=== PATIENT | female | born 1950 | race Caucasian/White ===

== ENCOUNTER 2019-01-15 16:21 | Emergency (ER) | payer BC ==
[2019-01-15 16:31] VITALS: TEMP 98; BMI 33.1
--- NOTE | 2019-01-15 16:31 | PDOC ---
Rapid Medical Evaluation Time Seen by Provider: 01/15/19 16:29 Medical Evaluation: Allergies Allergy/AdvReac Type Severity Reaction Status Date / Time No Known Allergies Allergy Verified 05/18/14 15:22 01/15/19 16:29 I have performed a brief in-person evaluation of this patient. The patient presents with a chief complaint of: RLQ pain w/ constipation x several days. Last BM was yesterday, was small and hard per pt. No BRBPR. Last colonoscopy was last year and neg. Sxs started while vacationing in [facility]. H/o HTN Pertinent physical exam findings:stable and well mg w/ +RLQ ttp I have ordered the following:labs The patient will proceed to the ED for further evaluation. 01/15/19 16:31 Discharge Disposition - Diagnosis Abdominal pain Qualifiers: Abdominal location: right lower quadrant Qualified Code(s): R10.31 - Right lower quadrant pain - Referrals - Patient Instructions - Post Discharge Activity
[2019-01-15 16:58] LABS: BASO % 0.4 % (0-2.0); EOS % 1.2 % (0-4.5); HEMOGLOBIN 12.6 GM/dL (10.7-15.3); LYMPH % 37.5 % (8-40); MCH 27.4 pg (25.7-33.7); MCHC 34.1 g/dl (32.0-36.0); MEAN CELL VOLUME 80.2 fl (80-96); MEAN PLT VOLUME 9.1 fl (7.5-11.1); MONO % 7.7 % (3.8-10.2); NEUT % 53.2 % (42.8-82.8); PLATELET COUNT 274 K/MM3 (134-434); RBC 4.61 M/mm3 (3.60-5.2); WHITE BLOOD COUNT 7.8 K/mm3 (4.0-10.0)
--- NOTE | 2019-01-15 17:29 | PDOC ---
History of Present Illness - General Chief Complaint: Pain Stated Complaint: PAIN ON THE RIGHT SIDE Time Seen by Provider: 01/15/19 16:29 - History of Present Illness Initial Comments: 68yo F with PMH of HTN, GERD, diverticulosis presenting with RLQ pain. The pain started 3-4 days ago while she was vacationing in [facility]. Patient reports that she her last bowel movement was yesterday and was a formed brown stool without blood, albeit hard. Patient reports a history of constipation and that she has had less liquid intake than usual due to her vacationing. She denies nausea or vomiting. The pain does not radiate. It is worsened with certain movements and relieved with burping. Previous surgeries include hysterectomy, and oopharectomy. Denies history of pancreatitis, kidney stone, or ulcers. Her GI physician is Dr. Paz. Last colonoscopy and endoscopy were last year and showed diverticuloses and hiatal hernia. No urinary symptoms. No fevers, chills , chest pain, or shortness of breath. Past History - Past Medical History Allergies/Adverse Reactions: Allergies Allergy/AdvReac Type Severity Reaction Status Date / Time No Known Allergies Allergy Verified 01/15/19 16:31 Home Medications: Ambulatory Orders Aspirin [ASA -] 81 mg PO DAILY 05/18/14 Biotin 800 mcg PO DAILY 05/18/14 Cholecalciferol (Vitamin D3) [Vitamin D3] 2,000 iu PO DAILY 05/18/14 Calcium Carbonate [Calcium] 600 mg PO BID 01/15/19 Escitalopram Oxalate [Lexapro -] 20 mg PO DAILY 01/15/19 Montelukast Sodium [Singulair] 10 mg PO DAILY 01/15/19 Multivitamin/Iron/Folic Acid [Centrum Adults Tablet] 1 each PO DAILY 01/15/19 Olmesartan Medoxomil [Benicar] 20 mg PO BID 01/15/19 Anemia: No Asthma: No Cancer: No Cardiac Disorders: No CVA: No COPD: No CHF: No Dementia: No Diabetes: No GI Disorders: No Disorders: No HTN: Yes Hypercholesterolemia: No Liver Disease: No Seizures: No Thyroid Disease: No - Surgical History Abdominal Surgery: No Appendectomy: No Cardiac Surgery: No Cholecystectomy: No Lung Surgery: No Neurologic Surgery: No Orthopedic Surgery: No - Suicide/Smoking/Psychosocial Hx Smoking History: Never smoked Have you smoked in the past 12 months: No Hx Alcohol Use: Yes (RARE) Drug/Substance Use Hx: No Substance Use Type: None Review of Systems - Review of Systems Comments:: Constitutional: no fever, no chills HEENT: no throat pain, no dysphagia Cardiovascular: no chest pain, no palpitations Respiratory: no cough, no shortness of breath Gastrointestinal: +abdominal pain, no nausea Genitourinary: no dysuria, no frequency Musculoskeletal: no myalgia, no arthralgia Skin: no rash, no itching Neurologic: no headache, no dizziness *Physical Exam - Vital Signs Last Vital Signs Temp Pulse Resp BP Pulse Ox 98.0 F 58 L 18 167/53 L 100 01/15/19 16:28 01/15/19 16:28 01/15/19 16:28 01/15/19 16:28 01/15/19 16:28 - Physical Exam Comments: General: Awake, alert, and fully oriented, in no acute distress Head: No signs of trauma Eyes: EOMI, sclera anicteric ENT: Moist mucus membranes Neck: Normal ROM, supple Lungs: Lungs clear, Normal breath sounds Cardio: Regular rhythm, S1 and S2 present Abdomen: Tender to deep palpation in the RLQ. Soft, nondistended. No guarding, no rebound, no masses. Vertical surgical scar present. Extremities: Normal range of motion, Distal pulses present SKIN: Warm, Dry, normal turgor Neurologic: Cranial nerves II through XII grossly intact. Normal speech Moderate Sedation - Procedure Monitoring Vital Signs: Procedure Monitoring Vital Signs Temperature 98.0 F 01/15/19 16:28 Pulse Rate 58 L 01/15/19 16:28 Respiratory Rate 18 01/15/19 16:28 Blood Pressure 167/53 L 01/15/19 16:28 O2 Sat by Pulse Oximetry (%) 100 01/15/19 16:28 ED Treatment Course - LABORATORY CBC & Chemistry Diagram: 01/15/19 16:38 01/15/19 16:38 - ADDITIONAL ORDERS Additional order review: 01/15/19 16:38 RBC 4.61 MCV 80.2 MCHC 34.1 RDW 15.0 MPV 9.1 Neutrophils % 53.2 Lymphocytes % 37.5 Monocytes % 7.7 Eosinophils % 1.2 Basophils % 0.4 Medical Decision Making - Medical Decision Making Patient not present in bed 1, likely in bathroom 01/15/19 17:31 68yo F with PMH of HTN, GERD, diverticulosis presenting with RLQ pain. DDX including but not limited to appendicitis, MSK, nephrolithiasis, UTI, mesenteric ischemia CBC, CMP, Lactate, UA CT abd/pelvis Patient declined analgesia as she is not currently in pain. No peritoneal signs on physical exam High suspicion for constipation vs MSK as cause of patient's pain, however cannot rule out appendicitis given RLQ pain. Will also check lactate to assess for mesenteric ischemia given patient's age. 01/15/19 17:57 No anemia or leukocytosis pending UA pending CTAP report 01/15/19 19:36 Lactate negative Electrolytes WNL UA negative for infection (Trace LE, but only 5 WBCs) CTAP negative for acute pathology Plan to discharge 01/15/19 20:14 *DC/Admit/Observation/Transfer Diagnosis at time of Disposition: Abdominal pain Qualifiers: Abdominal location: right lower quadrant Qualified Code(s): R10.31 - Right lower quadrant pain - Discharge Dispostion Disposition: HOME Condition at time of disposition: Stable - Referrals Referrals: Kemi Rivera MD [Primary Care Provider] - - Patient Instructions Printed Discharge Instructions: DI for Abdominal Pain-Adult Additional Instructions: You came into the ED for abdominal pain. Labs and CT imaging were normal. Follow-up with your primary care doctor this week to discuss this ED visit and to further evaluate your symptoms. You can take [id number] tylenol for pain. Follow the instructions on the medication bottle. Immediate medical attention is required if you have: you develop worsening pain , high fevers, persistent nausea, vomiting, or any new or concerning symptoms. If you think you are having an emergency, call for emergency medical services or present to the emergency department right away. - Post Discharge Activity
[2019-01-15 17:30] LABS: ALK PHOS 76 U/L (45-117); ANION GAP 6 MMOL/L (8-16); BILIRUBIN,TOTAL 0.3 mg/dL (0.2-1); BLOOD UREA NITROGEN 17 mg/dL (7-18); CALCIUM 9.2 mg/dL (8.5-10.1); CHLORIDE 105 mmol/L (98-107); CO2 28 mmol/L (21-32); CREATININE 0.6 mg/dL (0.55-1.3); GLUCOSE,RANDOM 101 mg/dL (74-106); LIPASE 161 U/L (73-393); POTASSIUM 3.9 mmol/L (3.5-5.1); SGOT/AST 22 U/L (15-37); SGPT/ALT 26 U/L (13-61); SODIUM 138 mmol/L (136-145); TOT PROT 7.3 g/dl (6.4-8.2)
--- NOTE | 2019-01-15 18:04 | PDOC ---
Attending Attestation - HPI HPI: 01/15/19 18:23 The patient is a 68 year old female with a significant past medical history of HTN, GERD, diverticulosis who is presenting to the ED with 4 days of right lower abdominal pain. She states she was vacationing in [place] when she developed the pain. She states she goes to [place] frequently and has never had this happen. She denies any other associated symptoms. She denies CP, SOB, palpitations, dizziness. She denies nausea, vomiting, urinary changes and changes in bowl movements. - Physicial Exam PE: 01/15/19 18:26 GENERAL: The patient is in no acute distress. HEAD: Normal with no signs of trauma. EYES: PERRLA, EOMI, sclera anicteric, conjunctiva clear. ENT: Ears normal, nares patent, oropharynx clear without exudates. Moist mucous membranes. NECK: Normal range of motion, supple without lymphadenopathy, JVD, or masses. LUNGS: Breath sounds equal, clear to auscultation bilaterally. No wheezes, and no crackles. HEART:Regular rate and rhythm, normal S1 and S2 without murmur, rub or gallop. ABDOMEN: (+) RLQ ttp. Soft, normoactive bowel sounds. No guarding, no rebound. No masses palpable. EXTREMITIES: Normal range of motion, no edema. No clubbing or cyanosis. No erythema, or tenderness. NEUROLOGICAL: Cranial nerves II through XII grossly intact. Normal speech. No focal neurological deficits. MUSCULOSKELETAL: Back non-tender to palpation, no CVA tenderness SKIN: Warm, Dry, normal turgor, no rashes or lesions noted. <Grecia Burrell - Last Filed: 01/15/19 18:23> - Resident Resident Name: Tahmina Venegas - ED Attending Attestation I have performed the following: I have examined & evaluated the patient, The case was reviewed & discussed with the resident, I agree w/resident's findings & plan, Exceptions are as noted - Medical Decision Making 01/15/19 18:43 68 yo F presenting to the ER with a complaint of abdominal pain Symptoms present for the past 4-5 days Intermittent, not positional, no radiation of pain No nausea, vomiting, diarrhea No hematuria DD: Appendicitis, obstructing stone, pyelonephritis, hernia, sbo (unlikely) Will do: Labs UA CT Re Assess Laboratory Tests 01/15/19 01/15/19 16:38 16:38 WBC 7.8 Hgb 12.6 Hct 37.0 Plt Count 274 BUN 17 Creatinine 0.6 AST 22 ALT [address] pending Signed out to Dr. Ortiz <Kimmie Vickers - Last Filed: 01/16/19 12:10> Attestations - Attestations 01/15/19 18:27 Documentation prepared by Grecia Burrell, acting as medical biller for Kimmie Vickers MD <Grecia Burrell - Last Filed: 01/15/19 18:23>
[2019-01-15 19:39] LABS: URINE APPEARANCE CLOUDY; URINE BILIRUBIN NEGATIVE (<2.0 mg/dL); URINE COLOR AMBER; URINE GLUCOSE (UA) NEGATIVE (NEGATIVE); URINE KETONE TRACE (NEGATIVE); URINE LEUK ESTERASE TRACE (NEGATIVE); URINE NITRITE NEGATIVE (NEGATIVE); URINE PROTEIN NEGATIVE (NEGATIVE); URINE UROBILINOGEN NEGATIVE mg/dL (0.2-1.0)
[2019-01-15 19:42] LABS: EPI CELLS MODERATE /HPF (FEW); URINE BACTERIA RARE /hpf (NONE SEEN); URINE MUCUS FEW
[2019-01-15 21:11] VITALS: BP 201/78; PULSE 59
== END 2019-01-15 21:00 | disposition home or self-care (01) ==
LOC: JER 16:21
DX: R10.31 Right lower quadrant pain (principal); I10 Essential (primary) hypertension; K21.9 Gastro-esophageal reflux disease without esophagitis; K57.90 Diverticulosis of intestine, part unspecified, without perforation or abscess without bleeding
CPT/HCPCS: 36415; 74177-TC; 80053; 81003; 81015; 83605; 83690; 85025; 99283-25

== ENCOUNTER 2021-05-30 05:17 | Day surgery (SDC) | payer OTHER, BC ==
[2021-05-26 17:34] VITALS: BMI 34.3
[2021-05-30 10:01] VITALS: TEMP 97.6
[2021-05-30 10:30] VITALS: PULSE 50
[2021-05-30 11:07] VITALS: BP 151/70
== END 2021-05-30 11:05 | disposition home or self-care (01) ==
LOC: JASU-ENDO 05:17
PROVIDERS: ATTEND Internal Medicine Gastroenterology
PROC: 0DB98ZX Excision of Duodenum, Via Natural or Artificial Opening Endoscopic, Diagnostic (ICD-10-PCS; 2021-05-30)
PROC: 0DB78ZX Excision of Stomach, Pylorus, Via Natural or Artificial Opening Endoscopic, Diagnostic (ICD-10-PCS; 2021-05-30)
PROC: 0DBL8ZX Excision of Transverse Colon, Via Natural or Artificial Opening Endoscopic, Diagnostic (ICD-10-PCS; principal; 2021-05-30 09:00)
DX: Z12.11 Encounter for screening for malignant neoplasm of colon (principal); K63.5 Polyp of colon; K57.30 Diverticulosis of large intestine without perforation or abscess without bleeding; K64.8 Other hemorrhoids; K21.9 Gastro-esophageal reflux disease without esophagitis; K44.9 Diaphragmatic hernia without obstruction or gangrene; K29.50 Unspecified chronic gastritis without bleeding; Z85.048 Personal history of other malignant neoplasm of rectum, rectosigmoid junction, and anus; Z86.010 Personal history of colon polyps; I10 Essential (primary) hypertension; R73.03 Prediabetes; R19.4 Change in bowel habit
CPT/HCPCS: 88305-TC; 88342-TC